=== PATIENT | female | born 1970 | race African-American/Black ===

== ENCOUNTER → 2020-07-09 | Outpatient (CLI) | payer OTHER ==
[~2020-07-09] MED LIST: OMNIPAQUE 350 MG/ML, 150 ML BOTTLE ONE
== END | disposition home or self-care (01) ==
LOC: RAD 09:25
PROVIDERS: ATTEND Internal Medicine Gastroenterology
DX: K80.20 Calculus of gallbladder without cholecystitis without obstruction (principal); N28.1 Cyst of kidney, acquired; J84.10 Pulmonary fibrosis, unspecified; R19.4 Change in bowel habit; K52.9 Noninfective gastroenteritis and colitis, unspecified; R12 Heartburn
CPT/HCPCS: 74177; Q9967